=== PATIENT | female | born 1960 | race Caucasian/White ===

== ENCOUNTER 2021-10-27 07:24 | Outpatient (CLI) | payer BC | END 2021-10-27 07:25 | disposition home or self-care (01) | LOC: BICULT 07:24 | PROVIDERS: ATTEND Internal Medicine Nephrology | DX: N18.30 Chronic kidney disease, stage 3 unspecified (principal) | CPT/HCPCS: 76770; 93975 ==

== ENCOUNTER 2022-01-28 07:36 | Outpatient (CLI) | payer BC | END 2022-01-28 07:37 | disposition home or self-care (01) | LOC: TBSIIMAG 07:36 | PROVIDERS: ATTEND Physician Assistant | DX: M54.6 Pain in thoracic spine (principal); M47.814 Spondylosis without myelopathy or radiculopathy, thoracic region; M51.34 Other intervertebral disc degeneration, thoracic region; G95.89 Other specified diseases of spinal cord; Z98.890 Other specified postprocedural states | CPT/HCPCS: 72146 ==